=== PATIENT | male | born 1995 | race Caucasian/White ===

== ENCOUNTER 2024-02-06 12:56 | Outpatient (OUT) | payer OTHER, SELFPAY ==
[2024-02-18 11:32] LABS: BOX Test Reference Lab UNITY; BOX Test Sent Out UNITY
== END 2024-02-06 12:57 | disposition home or self-care (01) ==
LOC: LAB 13:03
PROVIDERS: Visit Provider Obstetrics & Gynecology
DX: Z31.440 Encounter of male for testing for genetic disease carrier status for procreative management (principal)
CPT/HCPCS: 36415